=== PATIENT | male | born 1970 | race Caucasian/White ===

== ENCOUNTER 2017-03-26 09:43 | Emergency (ER) | payer MEDICAID ==
[~2017-03-26] VITALS: Ht 162.6 cm; Wt 84.0 kg
[2017-03-26 09:52] VITALS: Ht 162.6 cm; Wt 84.0 kg
[2017-03-26] MEDS ORDERED: morphine 4 MG/ML VIAL IV STA (11:16)
[2017-03-26] MEDS ORDERED: SOD CHLORIDE 0.9% 1,000 ML IV STA (11:16)
[2017-03-26] MEDS ORDERED: ONDANSETRON 4 MG INJ IV STA (11:16)
--- NOTE | 2017-03-26 11:19 | ERD ---
ER Documentation Chief Complaint Chief Complaint pt bib self with c/o abd pain and vomiting s/p +ETOH HPI Otherwise healthy 46-year-old male presents with a chief complaints of abdominal pain and vomiting 8 hours. Patient states that might be related to the wine he drank last night. Patient states he had 2 bottles of wine. No medical conditions. No drug abuse. History of alcohol abuse. Abdominal pain rated at 3 out of 10. Describes vomiting as clear liquidy and brown. Nonbilious. Has not taken any medications for the symptoms. Patient has no other complaints and describes no other associated manifestations. Nursing notes have been reviewed and are consistent with history given. ROS All systems reviewed and are negative except as per history of present illness. Allergies Allergies: Coded Allergies: amoxicillin (Verified Allergy, Mild, 03/26/17) Physical Exam Vitals Vital Signs Date Time Temp Pulse Resp B/P Pulse Ox O2 Delivery O2 Flow Rate FiO2 03/26/17 09:52 98.3 68 16 133/84 98 Physical Exam Const: 46-year-old male in no acute distress actively vomiting on initial presentation. Head: Atraumatic Eyes: Normal Conjunctiva. No jaundice. EOMI, PERRLA, no nystagmus. ENT: Normal External Ears, Nose and Mouth. Neck: Full range of motion..~ No meningismus. Resp: Clear to auscultation bilaterally Cardio: Regular rate and rhythm, no murmurs Abd: No varicosities or other visual abnormalities. Mildly distended. Soft. Tender in the epigastric region. Skin: No petechiae or rashes Back: No midline or flank tenderness Ext: No cyanosis, or edema Neur: Awake and alert Psych: Normal Mood and Affect Result Diagram: 03/26/17 1155 03/26/17 1155 Results 24 hrs Laboratory Tests Test 03/26/17 11:25 03/26/17 11:55 Urine Color COLORLESS Urine Clarity CLEAR Urine pH 7.0 Urine Specific Challenge 1.002 Urine Ketones NEGATIVEmg/dL Urine Nitrite NEGATIVEmg/dL Urine Bilirubin NEGATIVEmg/dL Urine Urobilinogen NEGATIVEmg/dL Urine Leukocyte Esterase NEGATIVELeu/ul Urine Hemoglobin NEGATIVEmg/dL Urine Glucose NEGATIVEmg/dL Urine Total Protein NEGATIVEmg/dl White Blood Count 11.010^3/ul Red Blood Count 5.1510^6/ul Hemoglobin 15.6g/dl Hematocrit 44.8% Mean Corpuscular Volume 87.0fl Mean Corpuscular Hemoglobin 30.3pg Mean Corpuscular Hemoglobin Concent 34.8g/dl Red Cell Distribution Width 13.6% Platelet Count 46513^3/UL Mean Platelet Volume 9.1fl Neutrophils % 73.2% Lymphocytes % 18.7% Monocytes % 6.2% Eosinophils % 0.8% Basophils % 0.7% Nucleated Red Blood Cells % 0.0/100WBC Neutrophils # 8.010^3/ul Lymphocytes # 2.110^3/ul Monocytes # 0.710^3/ul Eosinophils # 0.110^3/ul Basophils # 0.110^3/ul Nucleated Red Blood Cells # 0.010^3/ul Prothrombin Time 12.8Sec Prothrombin Time Ratio 1.0 INR International Normalized Ratio 0.96 Activated Partial Thromboplast Time 30.1Sec Sodium Level 141mmol/L Potassium Level 4.0mmol/L Chloride Level 100mmol/L Carbon Dioxide Level 27mmol/L Anion Gap 18 Blood Urea Nitrogen 9mg/dl Creatinine 0.72mg/dl Glucose Level 99mg/dl Calcium Level 9.3mg/dl Total Bilirubin 0.5mg/dl Direct Bilirubin 0.00mg/dl Indirect Bilirubin 0.5mg/dl Aspartate Amino Transf (AST/SGOT) 37IU/L Alanine Aminotransferase (ALT/SGPT) 66IU/L Alkaline Phosphatase 65IU/L Total Protein 8.4g/dl Albumin 4.9g/dl Globulin 3.50g/dl Albumin/Globulin Ratio 1.40 Lipase 57U/L Current Medications Medications (Trade) Dose Ordered Sig/Virgilio Route PRN Reason Start Time Stop Time Status Last Admin Dose Admin Sodium Chloride (NS) 1,000 ml @ 1,000 mls/hr Q1H STAT IV 03/26/17 11:16 03/26/17 12:15 DC 03/26/17 11:59 Morphine Sulfate (morphine) 4 mg ONCE STAT IV 03/26/17 11:16 03/26/17 11:17 DC 03/26/17 11:59 Ondansetron HCl (Zofran Inj) 4 mg ONCE STAT IV 03/26/17 11:16 03/26/17 11:18 DC 03/26/17 11:58 Procedures/MDM Otherwise healthy 46-year-old male presents with a chief complaint of vomiting. Patient was drinking wine last night. Patient had admits to chronic alcoholism. 1 L normal saline, Zofran and morphine IV were given in the emergency department with adequate relief of symptoms. Labs were obtained and revealed the following: Largely unremarkable. Mildly elevated anion gap. Most likely due to alcohol. Most likely diagnosis hangover versus alcoholic gastritis. At this time I do not suspect appendicitis, intestinal ischemia, peritonitis, intestinal obstruction, perforated viscus, acute pancreatitis, cholangitis, cholelithiasis, mechanical obstruction, AAA; as well as testicular torsion, epididymitis, prostatitis, or UTI. On repeat exam, his condition had no tenderness and improved overall abdominal exam. The patient is well appearing , and tolerates PO. I have spoke with the patient regarding their condition and future management. They have verbally responded that they understand their status and treatment plan. The patients vitals are stable, and their current condition is appropriate for discharge. The patient will be given discharge instructions with return precautions. Departure Diagnosis: Primary Impression: Hangover Complication of substance-induced condition: uncomplicated Qualified Code: F10.120 - Hangover without complication Condition: Stable Additional Instructions: Discontinue alcohol. Follow-up with PCP in the next 2-3 days. Return if symptoms worsen or change. CATHRYN WATKINS PA-C Mar 26, 2017 11:19
[2017-03-26 11:39] LABS: ADD UMIC NO; UR ASCORBIC ACID NEGATIVE (NEGATIVE); UR BILIRUBIN (Dip) NEGATIVE (NEGATIVE); UR BLOOD (Dip) NEGATIVE (NEGATIVE); UR CLARITY CLEAR (CLEAR); UR COLOR COLORLESS (YELLOW); UR GLUCOSE (Dip) NEGATIVE (NEGATIVE); UR KETONES (Dip) NEGATIVE (NEGATIVE); UR LEUKOCYTE ESTERASE (Dip) NEGATIVE Leu/ul (NEGATIVE); UR NITRITE (Dip) NEGATIVE (NEGATIVE); UR SPECIFIC GRAVITY (Dip) 1.002 (1.003-1.030); UR TOTAL PROTEIN (Dip) NEGATIVE (NEGATIVE); UR UROBILINOGEN (Dip) NEGATIVE (NEGATIVE)
[2017-03-26 12:13] LABS: BASOPHIL # 0.1 10^3/ul (0.0-0.1); BASOPHILS % 0.7 % (0.0-2.0); EOSINOPHILS # 0.1 10^3/ul (0.0-0.5); EOSINOPHILS % 0.8 % (0.0-7.0); HEMATOCRIT 44.8 % (42.0-52.0); HEMOGLOBIN 15.6 g/dl (14.0-18.0); LYMPHOCYTES # 2.1 10^3/ul (0.8-2.9); LYMPHOCYTES % 18.7 % (15.0-51.0); MEAN CORPUSCULAR HEMOGLOBIN 30.3 pg (29.0-33.0); MEAN CORPUSCULAR HGB CONC 34.8 g/dl (32.0-37.0); MEAN PLATELET VOLUME 9.1 fl (7.4-10.4); MONOCYTE # 0.7 10^3/ul (0.3-0.9); MONOCYTES % 6.2 % (0.0-11.0); NEUTROPHILS % 73.2 % (39.0-77.0); PLATELET COUNT 350 10^3/UL (140-415); RED BLOOD COUNT 5.15 10^6/ul (4.70-6.10); RED CELL DISTRIBUTION WIDTH 13.6 % (11.5-14.5)
[2017-03-26 12:23] LABS: INR 0.96; PARTIAL THROMBOPLASTIN TIME 30.1 Sec (25.0-35.0); PROTIME 12.8 Sec (12.2-14.2)
[2017-03-26 12:29] LABS: ALBUMIN 4.9 g/dl (3.3-4.9); ALBUMIN/GLOBULIN RATIO 1.4; BILIRUBIN,INDIRECT 0.5 mg/dl (0-1.1); BILIRUBIN,TOTAL 0.5 mg/dl (0.2-1.3); CALCIUM 9.3 mg/dl (8.4-10.2); CREATININE 0.72 mg/dl (0.61-1.24); TOTAL PROTEIN 8.4 g/dl (6.1-8.1)
[2017-03-26 13:07] VITALS: BP 120/72; PULSE 72; RESP 18; TEMP 98.6
== END 2017-03-26 13:08 | disposition home or self-care (01) ==
LOC: FTE 09:43
DX: F10.120 Alcohol abuse with intoxication, uncomplicated (principal)
CPT/HCPCS: 36415; 80053; 81003; 83690; 85025; 85610; 85730; 96374; 96375; J2270; J2405; J7030; Z7502

== ENCOUNTER 2018-02-07 09:15 | Emergency (ER) | END 2018-02-07 10:00 | disposition home or self-care (01) ==

== ENCOUNTER 2018-04-20 12:23 | Emergency (ER) | END 2018-04-20 14:06 | disposition home or self-care (01) ==